=== PATIENT | male | born 1995 | race Caucasian/White ===

== ENCOUNTER 2020-05-31 18:23 | Emergency (ER) | payer SELFPAY ==
[~2020-05-31] VITALS: Ht 188 cm; Wt 100.0 kg
[2020-05-31 19:58] VITALS: BP 134/76; PULSE 81; TEMP 97.6
== END 2020-05-31 20:00 | disposition home or self-care (01) ==
LOC: COL.ER 18:23
DX: H57.89 Other specified disorders of eye and adnexa (principal)

== ENCOUNTER 2022-03-25 00:02 | Emergency (ER) | payer OTHER ==
[~2022-03-25] VITALS: Ht 188 cm; Wt 111.4 kg
[2022-03-25 00:08] VITALS: TEMP 98.1
[2022-03-25 00:32] VITALS: BP 137/89; PULSE 100
== END 2022-03-25 00:32 | disposition home or self-care (01) ==
LOC: COL.ER 00:02
DX: S61.210A Laceration without foreign body of right index finger without damage to nail, initial encounter (principal); F17.290 Nicotine dependence, other tobacco product, uncomplicated; Z28.310 Unvaccinated for COVID-19; W26.0XXA Contact with knife, initial encounter